=== PATIENT | female | born 1960 | race African-American/Black ===

== ENCOUNTER 2016-04-12 04:46 | Emergency (ER) | payer BC ==
[~2016-04-12] VITALS: Ht 175.3 cm; Wt 115.7 kg
[~2016-04-12 04:46] MED LIST: ACETAMINOPHEN-120 ML PO; AZITHROMYCIN 2250 MG PO; BENADRYL25 MG PO; CIPRO500 MG PO; CLONIDINE HCL0.2 M2 PO; DARVOCET-N 1001 EACH PO; DIAZEPAM 5 MG5 MG PO; DIOVAN320 MG PO; DOXYCYCLINE 10100 M1 PO; MEDROLDOSEPACK PO; MUCINEX600 MG PO; NAPROSYN500 MG PO; NORCO 5-325 TA1 EACH PO; PEPCID20 MG PO; PHENAZOPYRIDIN200 M2 PO; PHENERGAN 25 MG25 M1 PO; PREDNISONE 10 M10 M1 PO; PREDNISONE PO; PREDNISONE50 MG PO; PRILOSEC 20 MG20 MG PO; PRILOSEC40 MG PO; PROAIR HFA8.5 GM INH; PROLIA60 MG/1 ML IM; QVAR HFA 440 MCG/UN1 INH; SPIRIVA INH; SYMBICORT160 MCG/4. INH; TUMS PO; VALIUM5 MG PO; XOPENEX1.25 MG/3 IH; ZOFRAN ODT4 MG PO; [UNRECOGNIZED DRUG - OTHER] PO
[2016-04-12 05:36] LABS: ABSOLUTE NEUTROPHILS 4.4 thou/uL (1.4-8.2); BASOPHILS 0.6 % (0.0-2.0); EOSINOPHILS 0.1 % (0.0-3.0); HEMATOCRIT 39.7 % (37.0-47.0); HEMOGLOBIN 13.2 gm/dL (12.0-15.0); LYMPHOCYTES 14.4 % (24.0-44.0); MCH 30.5 pg (26.0-34.0); MCHC 33.4 % (28.0-37.0); MCV 91.6 fL (80.0-100.0); MONOCYTES 2.8 % (1.0-8.0); PLATELET COUNT 288 thou/uL (150-400); POLYS 82.1 % (36.0-66.0); RBC 4.33 mil/uL (4.20-5.00); RDW 13.2 % (10.5-14.5); WBC 5.3 thou/uL (4.0-11.0)
[2016-04-12 05:40] LABS: MANUAL DIFF NO
[2016-04-12 05:59] LABS: CALCIUM 9.7 mg/dL (8.5-10.1); CREATININE 0.9 mg/dL (0.6-1.3); POTASSIUM 4.5 mmol/L (3.5-5.1)
[2016-04-12 06:11] LABS: TOTAL BILIRUBIN 0.2 mg/dL (<0.1-1.0); TOTAL PROTEIN 8.4 g/dL (6.4-8.2)
[2016-04-12 06:41] LABS: URINE BILIRUBIN NEGATIVE (Negative); URINE BLOOD TRACE (Negative); URINE COLOR YELLOW; URINE GLUCOSE-RANDOM* NEGATIVE (Negative); URINE KETONES NEGATIVE (Negative); URINE LEUKOCYTES-REFLEX NEGATIVE (Negative); URINE PROTEIN (DIPSTICK) NEGATIVE (Negative); URINE SPECIFIC GRAVITY <= 1.005 (1.003-1.035); URINE UROBILINOGEN 0.2 E.U./dl (0.2-1.0)
[2016-04-12] MEDS ORDERED: ZANTAC 150MG T150 MG PO (07:00)
== END 2016-04-12 07:19 | disposition home or self-care (01) ==
LOC: ER 04:46
PROVIDERS: Emergency Medicine
DX: K21.9 Gastro-esophageal reflux disease without esophagitis (principal); R10.10 Upper abdominal pain, unspecified; J45.909 Unspecified asthma, uncomplicated; I10 Essential (primary) hypertension; E78.5 Hyperlipidemia, unspecified; Z90.710 Acquired absence of both cervix and uterus; Z90.49 Acquired absence of other specified parts of digestive tract; Z87.891 Personal history of nicotine dependence; Z88.5 Allergy status to narcotic agent

== ENCOUNTER 2017-07-09 08:08 | Emergency (ER) | payer BC ==
[~2017-07-09] VITALS: Ht 175.3 cm; Wt 113.4 kg
--- NOTE | ~2017-07-09 | EKG ---
[facility] [place] [address] ELECTROCARDIOGRAM REPORT Name: JANAK DYE Room [facility]: [id number] Admission: 07/09/17 Attend Phys: Discharge: Date of : 60 Report #: [id number] THIS REPORT FOR: //name// [facility] ED Test Date: 2017-07-09 Test Time: 09:11:48 Pat Name: JANAK DYE Department: Room: Gender: F Director Of Retail Marketing: 12 : 1960 Requested By: Pelon Soto Order Number: [id number] MD: Yung Perez Measurements Intervals [place] Rate: 87 P: 60 PA: 156 QRS: -18 QRSD: 98 T: 20 QT: 371 QTc: 447 Interpretive Statements Sinus rhythm Borderline left axis deviation Borderline low voltage, extremity leads Abnormal R-wave progression, late transition Compared to ECG 08/27/2016 13:33:32 Sinus rhythm has replaced atrial flutter Electronically Signed On 07-09-2017 17:15:43 CDT by Yung Perez [email or web address] <ELECTRONICALLY SIGNED> By: Yung Perez MD, [facility] 07/09/17 1715 0911 0 Yung Perez MD, [facility] /EPI
--- NOTE | ~2017-07-09 | EKG ---
[place] [address] [place] [address] ELECTROCARDIOGRAM REPORT Name: JANAK DYE Room #: REG [facility] [id number] Admission: 07/09/17 Attend Phys: Discharge: Date of : 60 Report #: [id number] THIS REPORT FOR: //name// [facility] ED Test Date: 2017-07-09 Test Time: 08:23:21 Pat Name: JANAK DYE Department: Room: Gender: F Security Systems Manager: : 1960 Requested By: Pelon Soto Order Number: [id number] MD: Yung Perez Measurements Intervals [place] Rate: 136 P: -85 [place]: 105 QRS: -67 QRSD: 91 T: 36 QT: 340 QTc: 512 Interpretive Statements Atrial flutter with 2-1 AV conduction Abnormal R-wave progression, late transition Possible inferior infarct, age indeterminate Prolonged QT interval Compared to ECG 08/27/2016 13:33:32 Atrial flutter has replaced sinus rhythm Electronically Signed On 07-09-2017 17:14:01 CDT by Yung Perez [email or web address] <ELECTRONICALLY SIGNED> By: Yung Perez MD, [facility] 07/09/17 1714 0823 0823 Yung Perez MD, [facility] /EPI
[~2017-07-09 08:08] MED LIST changes: +PREDNISONE 20 M20 MG PO; +ZANTAC 150MG T150 MG PO
[2017-07-09 08:41] LABS: HEMATOCRIT 37.5 % (37.0-47.0); HEMOGLOBIN 12.8 gm/dL (12.0-15.0); MCH 30.9 pg (26.0-34.0); MCHC 34.2 g/dL (28.0-37.0); MCV 90.1 fL (80.0-100.0); PLATELET COUNT 295 thou/uL (150-400); RBC 4.16 mil/uL (4.20-5.00); RDW 13.2 % (10.5-14.5); WBC 6.6 thou/uL (4.0-11.0)
[2017-07-09 08:50] LABS: ANION GAP 8 mmol/L (7-16); BUN 14 mg/dL (7-18); CALCIUM 9.6 mg/dL (8.5-10.1); CHLORIDE 106 mmol/L (98-107); CO2 24 mmol/L (21-32); CREATININE 1.1 mg/dL (0.6-1.0); GLUCOSE 123 mg/dL (74-106); POTASSIUM 4.3 mmol/L (3.5-5.1); SODIUM 138 mmol/L (136-145)
[2017-07-09 08:59] LABS: TROPONIN-I < 0.04 ng/mL (<0.06)
[2017-07-09 09:15] LABS: ABSOLUTE NEUTROPHILS 3.2 thou/uL (1.4-8.2); PLATELET ESTIMATE NORMAL
[2017-07-09] MEDS ORDERED: CARDIZEM CD120 MG PO (09:56)
[2017-07-09] MEDS ORDERED: ASPIRIN81 M2 PO (09:56)
== END 2017-07-09 10:00 | disposition home or self-care (01) ==
LOC: ER 08:08
PROVIDERS: Emergency Medicine
DX: I48.0 Paroxysmal atrial fibrillation (principal); J45.909 Unspecified asthma, uncomplicated; I10 Essential (primary) hypertension; M19.90 Unspecified osteoarthritis, unspecified site; K21.9 Gastro-esophageal reflux disease without esophagitis; E78.5 Hyperlipidemia, unspecified; G47.33 Obstructive sleep apnea (adult) (pediatric); Z88.6 Allergy status to analgesic agent; Z90.49 Acquired absence of other specified parts of digestive tract; Z90.710 Acquired absence of both cervix and uterus; Z98.890 Other specified postprocedural states; Z87.891 Personal history of nicotine dependence

== ENCOUNTER → 2017-07-12 | Outpatient (CLI) | payer BC ==
[~2017-07-12] MED LIST changes: +ASPIRIN81 M2 PO; +CARDIZEM CD120 MG PO
== END ==
LOC: ULTRA 06:04
DX: E04.1 Nontoxic single thyroid nodule (principal); R22.1 Localized swelling, mass and lump, neck

== ENCOUNTER → 2017-08-06 | Outpatient (CLI) | payer BC | END | disposition home or self-care (01) | LOC: ULTRA 06:36 | DX: E04.1 Nontoxic single thyroid nodule (principal); I48.0 Paroxysmal atrial fibrillation; J45.909 Unspecified asthma, uncomplicated; K21.9 Gastro-esophageal reflux disease without esophagitis; Z90.49 Acquired absence of other specified parts of digestive tract; Z90.710 Acquired absence of both cervix and uterus; Z87.440 Personal history of urinary (tract) infections; Z79.82 Long term (current) use of aspirin; Z79.899 Other long term (current) drug therapy ==

== ENCOUNTER 2018-10-01 21:52 | Emergency (ER) | payer BC ==
[~2018-10-01] VITALS: Ht 162.6 cm; Wt 115.7 kg
[2018-10-01 22:59] LABS: ABSOLUTE NEUTROPHILS 8.2 thou/uL (1.4-8.2); BASOPHILS 0.3 % (0.0-2.0); EOSINOPHILS 0.3 % (0.0-3.0); HEMATOCRIT 35.7 % (37.0-47.0); LYMPHOCYTES 12.2 % (24.0-44.0); MCH 30.4 pg (26.0-34.0); MCHC 33.5 g/dL (28.0-37.0); MCV 90.8 fL (80.0-100.0); PLATELET COUNT 259 thou/uL (150-400); POLYS 79.2 % (36.0-66.0); RBC 3.94 mil/uL (4.20-5.00); WBC 10.4 thou/uL (4.0-11.0)
[2018-10-01 23:11] LABS: CALCIUM 8.8 mg/dL (8.5-10.1); POTASSIUM 3.8 mmol/L (3.5-5.1)
[2018-10-01 23:17] LABS: ALBUMIN 3.5 g/dL (3.4-5.0); TOTAL BILIRUBIN 0.3 mg/dL (<0.1-1.0); TOTAL PROTEIN 7.4 g/dL (6.4-8.2)
[2018-10-01] MEDS ORDERED: ONDANSETRON HCL4 M2 PO (23:51)
[2018-10-02 00:18] LABS: URINE BILIRUBIN NEGATIVE (Negative); URINE BLOOD NEGATIVE (Negative); URINE CLARITY CLEAR; URINE COLOR YELLOW; URINE GLUCOSE-RANDOM* NEGATIVE (Negative); URINE KETONES NEGATIVE (Negative); URINE LEUKOCYTES-REFLEX NEGATIVE (Negative); URINE NITRITE-REFLEX NEGATIVE (Negative); URINE PROTEIN (DIPSTICK) NEGATIVE (Negative); URINE SPECIFIC GRAVITY 1.015 (1.005-1.035)
[2018-10-02 00:45] VITALS: BP 178/97
--- NOTE | 2018-10-02 07:37 | EKG ---
[place] [address] [facility] [place] [address] ELECTROCARDIOGRAM REPORT Name: JANAK DYE Room #: DEP [facility] [id number] ������������������ Admission: 10/01/18 ������������������ Attend Phys: Discharge: 10/02/18 ������������������ Date of : 60 Report #: [id number] ����������������������������������������������������������������� [id number] THIS REPORT FOR: //name// [facility] ED Test Date: 2018-10-01 Test Time: 22:28:21 Pat Name: JANAK DYE Department: Room: Gender: F Manager Of Procurement: CARLO : 1960 Requested By: Jorge Jones Order Number: [id number] MD: Yung Perez Measurements Intervals [place] Rate: 92 P: 63 [place]: 150 QRS: -46 QRSD: 95 T: 27 QT: 363 QTc: 450 Interpretive Statements Sinus rhythm Abnormal R-wave progression, late transition Inferior infarct, old Compared to ECG 07/09/2017 09:11:48 no significant change was found Electronically Signed On 10-02-2018 7:37:12 CDT by Yung Perez [email or web address] ��������������������������������������������� <ELECTRONICALLY SIGNED> ���������������������������������������� By: Yung Perez MD, [facility] ��������������������������������������������� 10/02/18 0737 27 27 Yung Perez MD, [facility] /EPI
== END 2018-10-02 00:46 | disposition home or self-care (01) ==
LOC: ER 21:52
PROVIDERS: Emergency Medicine
DX: B34.9 Viral infection, unspecified (principal); I10 Essential (primary) hypertension; J45.909 Unspecified asthma, uncomplicated; E78.5 Hyperlipidemia, unspecified; M19.90 Unspecified osteoarthritis, unspecified site; K21.9 Gastro-esophageal reflux disease without esophagitis; Z87.891 Personal history of nicotine dependence; Z90.710 Acquired absence of both cervix and uterus; Z90.49 Acquired absence of other specified parts of digestive tract; Z98.890 Other specified postprocedural states; Z88.8 Allergy status to other drugs, medicaments and biological substances; Z88.6 Allergy status to analgesic agent

== ENCOUNTER 2020-03-01 09:25 | Emergency (ER) | payer BC ==
[~2020-03-01] VITALS: Ht 175.3 cm; Wt 113.4 kg
--- NOTE | ~2020-03-01 | EMS ---
[facility] [address] [place] [address] EMS Patient Care Report Name: JANAK DYE Room #: DEP OJ Beckwith#: [id number] Admission: 03/01/20 Attend Phys: Discharge: 03/01/20 Date of : 60 Report #: [id number] THIS REPORT FOR: //name// Report Transmitted: 03/01/2020 20:30 EMS Care Summary [place], [place]/[facility] Incident [id number] @ 03/01/2020 08:40 Incident Location [address] [place] [address] Patient JANAK DYE Female, 59 Years 1960 Patient Address [address] [place] [address] Patient History Asthma,Hypertension (HTN),Atrial Fibrillation, Patient Allergies Tramadol, Patient Medications Amlodipine, Losartan, Chief Complaint It's hard to breathe Disposition Transported No Lights/[place] Dispatch Reason Breathing Problem Transported To [facility] Narrative Called for SOB. Upon arrival, pt was walking outside towards the ambulance where she climbed in and sat down w/o incident. Pt said she had asthma and [address] [address] EMS Patient Care Report Name: JANAK DYE Room #: DEP M.Alfred.#: [id number] Admission: 03/01/20 Attend Phys: Discharge: 03/01/20 Date of : 60 Report #: [id number] couldn't break it. Vitals obtained. Wheezing present. Duo-Neb started w/O2. 18g IV. Solumedrol. Vitals repeated. En route: pt said she was doing better, RR to ER. Arrived: pt taken to ER #4, pt care & report to ER staff. Initial Vitals @09:05P: 101,SpO2: 100, @09:01P: 99,CO: 2,SpO2: 100, @09:02P: 100,R: 18,BP: 160/91,Pain: 0/10,GCS: 15,Glucose: 127,CO: 3,SpO2: 99,Revised Trauma: 12,NV Suspected: false @09:05P: 97, @08:53P: 115,R: 28,BP: 155/86,Pain: 0/10,GCS: 15,CO: 3,SpO2: 96,Revised Trauma: 12, Assessments @08:47MENTAL:Person Oriented,Time Oriented,Place Oriented,Event Oriented,SKIN:HEENT:LUNG SOUNDS:General: Vomiting,General: Diarrhea,General: Nausea,ABDOMEN:General: Vomiting,General: Diarrhea,General: Nausea,PELVIS//GI:EXTREMITIES:Left Arm: No Abnormalities,Right Arm: No Abnormalities,Left Leg: No Abnormalities,Right Leg: No Abnormalities,PULSE:Radial: 2+ Normal,NEURO: Impression Asthma Procedures @09:01Saline Lock 15cc (18 ga) Site: Forearm-LeftResponse: UnchangedSucceeded@08:51Oxygen FlowRate: 8 Device: Nebulizer Response: ImprovedSucceeded@08:47ALS AssessmentResponse: UnchangedSucceeded@09:05Solu-Medrol - 125 Milligrams (mg) - Intravenous (IV)Response: Improved@08:51Albuterol - 2.5 Milligrams (mg) - NebulizedResponse: Improved@08:51Atrovent - 0.5 Milligrams (mg) - NebulizedResponse: Improved@08:51Albuterol - 2.5 Milligrams (mg) - NebulizedResponse: Improved@08:49StretcherResponse: Unchanged Timeline 08:38,Call Received 08:38,Dispatch Notified 08:40,Dispatched 08:42,En Route 08:46,On Scene 08:47,At Patient 08:47,ALS Assessment,Response: UnchangedSucceeded, 08:49,Stretcher,Response: Unchanged 08:51,Albuterol - 2.5 Milligrams (mg) - Nebulized,Response: Improved 08:51,Albuterol - 2.5 Milligrams (mg) - Nebulized,Response: Improved 08:51,Atrovent - 0.5 Milligrams (mg) - Nebulized,Response: Improved [facility] [address] [place] [address] EMS Patient Care Report Name: JANAK DYE Room #: [facility] Amena#: [id number] Admission: 03/01/20 Attend Phys: Discharge: 03/01/20 Date of : 60 Report #: [id number] 08:51,Oxygen FlowRate: 8 Device: Nebulizer Response: ImprovedSucceeded, 08:53,BP: 155/86 M,PULSE: 115,RR: 28 R,SPO2: 96 Ox,ETCO2: ,BG: ,PAIN: 0,GCS: 15, 09:01,Saline Lock 15cc 18 ga Site: Forearm-Left,Response: UnchangedSucceeded, 09:01,BP: / M,PULSE: 99,RR: R,SPO2: 100 Ox,ETCO2: ,BG: ,PAIN: ,GCS: , 09:02,BP: 160/91 M,PULSE: 100,RR: 18 R,SPO2: 99 Ox,ETCO2: ,B,PAIN: 0,GCS: 15, 09:05,Solu-Medrol - 125 Milligrams (mg) - Intravenous (IV),Response: Improved 09:05,BP: / M,PULSE: 101,RR: R,SPO2: 100 Ox,ETCO2: ,BG: ,PAIN: ,GCS: , 09:05,BP: / M,PULSE: 97,RR: R,SPO2: Ox,ETCO2: ,BG: ,PAIN: ,GCS: , 09:05,Depart Scene 09:15,At Destination 09:35,Call Closed Disclaimer v1.1 Copyright 2020 [employer] This EMS Care Summary contains data elements from the applicable legal record (which may be displayed differently). It is designed to provide pertinent information for the following purposes: continuity of care, clinical quality, and state data reporting. The complete legal record is available to ED staff and administrators of the receiving hospital in [employer]'s Patient Tracker. All data is provided "as is."
[~2020-03-01 09:25] MED LIST changes: +ONDANSETRON HCL4 M2 PO
[2020-03-01 09:40] LABS: ABSOLUTE NEUTROPHILS 15.3 thou/uL (1.4-8.2); BASOPHILS 0.2 % (0.0-2.0); HEMATOCRIT 38.4 % (37.0-47.0); HEMOGLOBIN 12.5 gm/dL (12.0-15.0); LYMPHOCYTES 5.3 % (24.0-44.0); MCH 29.9 pg (26.0-34.0); MCHC 32.5 g/dL (28.0-37.0); MCV 91.8 fL (80.0-100.0); MONOCYTES 4.8 % (1.0-8.0); PLATELET COUNT 279 thou/uL (150-400); POLYS 89.7 % (36.0-66.0); RBC 4.18 mil/uL (4.20-5.00); RDW 13.3 % (10.5-14.5)
[2020-03-01 09:52] LABS: ANION GAP 11 mmol/L (7-16); BUN 9 mg/dL (7-18); CALCIUM 9.3 mg/dL (8.5-10.1); CHLORIDE 102 mmol/L (98-107); CO2 27 mmol/L (21-32); CREATININE 1.1 mg/dL (0.6-1.0); GLUCOSE 143 mg/dL (74-106); POTASSIUM 3.4 mmol/L (3.5-5.1); SODIUM 140 mmol/L (136-145)
[2020-03-01 10:01] LABS: ALBUMIN 3.8 g/dL (3.4-5.0); DIRECT BILIRUBIN 0.2 mg/dL (<0.1-0.2); SGOT 25 U/L (15-37); SGPT 38 U/L (30-65); TOTAL BILIRUBIN 0.7 mg/dL (0.2-1.0); TOTAL PROTEIN 7.3 g/dL (6.4-8.2); TROPONIN-I <0.06 ng/mL (<0.06)
--- NOTE | 2020-03-01 10:57 | EKG ---
[facility] [place] [address] ELECTROCARDIOGRAM REPORT Name: JANAK DYE Room #: REG [facility].#: [id number] Admission: 03/01/20 Attend Phys: Discharge: Date of : 60 Report #: [id number] THIS REPORT FOR: cc: Linda Bourgeois MD, Karla L. MD Couchonnal,Nitish Gordon MD ~ THIS REPORT FOR: //name// [facility] ED Test Date: 2020-03-01 Test Time: 09:30:33 Pat Name: JANAK DYE Department: Room: Gender: F Intern Retail: : 1960 Requested By: Lima Arteaga Order Number: [id number] MD: Nitish Sandoval Measurements Intervals [place] Rate: 98 P: 71 [place]: 155 QRS: -78 QRSD: 98 T: 61 QT: 348 QTc: 445 Interpretive Statements Sinus rhythm Consider left atrial enlargement Abnormal R-wave progression, late transition Inferior infarct, old Compared to ECG 10/01/2018 22:28:21 No significant changes Electronically Signed On 03-01-2020 10:57:27 FRUIT AND VEGETABLE FACTORY WORKER by Nitish Sandoval [email or web address] <ELECTRONICALLY SIGNED> By: Nitish Sandoval MD 03/01/20 1057 Nitish Sandoval MD /EPI
[2020-03-01] MEDS ORDERED: NORCO 5-325 TA1 EAC2 PO (14:32)
[2020-03-01] MEDS ORDERED: VIBRAMYCIN 100100 MG PO (14:32)
[2020-03-01 14:44] VITALS: BP 184/101
== END 2020-03-01 15:00 | disposition home or self-care (01) ==
LOC: ER 09:25
PROVIDERS: Emergency Medicine
DX: J18.9 Pneumonia, unspecified organism (principal); R53.1 Weakness; I10 Essential (primary) hypertension; J45.909 Unspecified asthma, uncomplicated; K21.9 Gastro-esophageal reflux disease without esophagitis; E78.5 Hyperlipidemia, unspecified; Z90.710 Acquired absence of both cervix and uterus; Z90.49 Acquired absence of other specified parts of digestive tract; Z79.899 Other long term (current) drug therapy; Z87.891 Personal history of nicotine dependence; Z88.8 Allergy status to other drugs, medicaments and biological substances; Z20.828 Contact with and (suspected) exposure to other viral communicable diseases

== ENCOUNTER 2020-04-15 13:46 | Inpatient (IN) | payer BC ==
[~2020-04-15] VITALS: Ht 170.2 cm; Wt 122.5 kg
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
[~2020-04-15 13:46] MED LIST changes: +NORCO 5-325 TA1 EAC2 PO; +VIBRAMYCIN 100100 MG PO
[2020-04-15 13:47] VITALS: BP 151/82
[2020-04-15 15:58] LABS: HEMOGLOBIN 12.1 gm/dL (12.0-15.0); MCH 29.8 pg (26.0-34.0); MCHC 32.7 g/dL (28.0-37.0); MCV 91.2 fL (80.0-100.0); PLATELET COUNT 323 thou/uL (150-400); RBC 4.06 mil/uL (4.20-5.00); RDW 13.4 % (10.5-14.5); WBC 28.6 thou/uL (4.0-11.0)
[2020-04-15 16:44] LABS: ABSOLUTE NEUTROPHILS 25.2 thou/uL (1.4-8.2)
[2020-04-15 16:54] LABS: ANION GAP 16 mmol/L (7-16); BUN 13 mg/dL (7-18); CALCIUM 9.9 mg/dL (8.5-10.1); CHLORIDE 101 mmol/L (98-107); CO2 20 mmol/L (21-32); CREATININE 1.1 mg/dL (0.6-1.0); GLUCOSE 100 mg/dL (74-106); POTASSIUM 3.9 mmol/L (3.5-5.1); SODIUM 137 mmol/L (136-145)
[2020-04-15 17:06] LABS: ALBUMIN 3.9 g/dL (3.4-5.0); LIPASE 50 U/L (73-393); SGOT 27 U/L (15-37); SGPT 24 U/L (14-59); TOTAL BILIRUBIN 0.8 mg/dL (0.2-1.0); TOTAL PROTEIN 7.9 g/dL (6.4-8.2); TROPONIN-I <0.06 ng/mL (<0.06)
--- NOTE | 2020-04-15 17:50 | NUR ---
RETURNED FROM CT
[2020-04-15 18:56] LABS: URINE BILIRUBIN NEGATIVE (Negative); URINE BLOOD TRACE (Negative); URINE CLARITY CLEAR; URINE COLOR YELLOW; URINE GLUCOSE-RANDOM* NEGATIVE (Negative); URINE KETONES NEGATIVE (Negative); URINE LEUKOCYTES-REFLEX NEGATIVE (Negative); URINE NITRITE-REFLEX NEGATIVE (Negative); URINE PROTEIN (DIPSTICK) NEGATIVE (Negative); URINE SPECIFIC GRAVITY <= 1.005 (1.005-1.035); URINE UROBILINOGEN 0.2 E.U./dl (0.2-1.0)
[2020-04-15 22:12] VITALS: BP 141/84
[2020-04-15 23:30] VITALS: BP 125/69
[2020-04-16] MEDS ORDERED: AMLODIPINE BESY10 MG PO (00:11)
[2020-04-16] MEDS ORDERED: SPIRIVA18 MCG INH (00:13)
[2020-04-16 04:53] VITALS: BP 117/46
[2020-04-16 05:53] LABS: ABSOLUTE NEUTROPHILS 11.1 thou/uL (1.4-8.2); BASOPHILS 0.3 % (0.0-2.0); EOSINOPHILS 0.6 % (0.0-3.0); HEMATOCRIT 30.7 % (37.0-47.0); HEMOGLOBIN 10.4 gm/dL (12.0-15.0); LYMPHOCYTES 16.3 % (24.0-44.0); MCH 31.2 pg (26.0-34.0); MCV 91.7 fL (80.0-100.0); MONOCYTES 6.9 % (1.0-8.0); POLYS 75.9 % (36.0-66.0); RBC 3.34 mil/uL (4.20-5.00); RDW 13.8 % (10.5-14.5); WBC 14.6 thou/uL (4.0-11.0)
--- NOTE | 2020-04-16 06:06 | NUR ---
pt admitted from home with complains of abdominal pain, nausea/vomiting and diarrhea, pt is alert and orientedx4, vss, pain medicine given for abdominal pain with partial relief, to d/c covid isolation d/t covid - results, remained npo, no acute distress noted, will pass on report
[2020-04-16 06:08] LABS: PLATELET COUNT 240 thou/uL (150-400)
--- NOTE | 2020-04-16 06:08 | NUR ---
Okay to remove patient from Covid isolation per Brittany Ignacio RN.
[2020-04-16 06:15] LABS: ALBUMIN 3.1 g/dL (3.4-5.0); CREATININE 1.1 mg/dL (0.6-1.0); MAGNESIUM 1.9 mg/dL (1.8-2.4); POTASSIUM 3.4 mmol/L (3.5-5.1); TOTAL BILIRUBIN 0.4 mg/dL (0.2-1.0); TOTAL PROTEIN 6.5 g/dL (6.4-8.2)
[2020-04-16 07:52] VITALS: BP 159/93
--- NOTE | 2020-04-16 11:21 | NUR ---
PT SEEN THIS MORNING BY , PER PT, SHE WAS NOT RECEIVING ENOUGH BREAHING TREATMENTS, RT, RN, PT TALKED ABOUT BREATHING TX NEEDS AND THIS WAS COMMUNICATED TO THE MD WHO ORDERED ADDITIONAL TREATMENTS SCHEDULED FOR THE PT. PT IS TO BE TRANFERRED TODAY, PRIOR IV THAT WAS BOTHERING THE PT WAS TAKEN OUT AND NEW IV WAS PLACED. PT STILL ON NPO STATUS, LOWERING HGB WAS NOTIFIED TO THE MD. PT'S LAST MEAL WAS 04/14/20 [employer] [facility]. SINCE RN HAS HAD THE PT, PT HAD NOT USED TO GO FOR A BM. HAT IS WAITING, WILL COLLECT CDIFF SAMPLE WHEN CAN
--- NOTE | 2020-04-16 14:56 | EKG ---
[place] [address] [facility] [place] [place] [address] ELECTROCARDIOGRAM REPORT Name: JANAK DYE Room #: 363-P ADM IN M.R.#: [id number] Admission: 04/15/20 Attend Phys: Les Llanes MD Discharge: Date of : 60 Report #: [id number] [facility] ED Test Date: 2020-04-15 Test Time: 16:38:38 Pat Name: JANAK DYE Department: Room: 363 Gender: F Postal Carrier: ECCIL : 1960 Requested By: Gina Graff Order Number: [id number] MD: Javan Jones Measurements Intervals [place] Rate: 76 P: 64 FL: 152 QRS: -20 QRSD: 109 T: -1 QT: 339 QTc: 382 Interpretive Statements Sinus rhythm Abnormal R-wave progression, late transition Probable left ventricular hypertrophy Inferior infarct, old Compared to ECG 03/01/2020 09:30:33 No significant changes Electronically Signed On 04-16-2020 14:56:07 DIRECTOR OF COMMUNICATIONS by Javan Jones [email or web address] <ELECTRONICALLY SIGNED> By: Javan Jones MD, [facility] 04/16/20 1456 1638 37 Javan Jones MD, FAC /EPI
[2020-04-16 15:53] VITALS: BP 153/80
[2020-04-16 20:25] VITALS: BP 130/60
--- NOTE | 2020-04-17 02:18 | NUR ---
98% ON ROOM AIR. HOWEVER, SOME WHEEZES IN LOWER LOBES. SHE IS NOT COMFORTABLE WITH HER BREATHING TOTALLY. SHE USUALLY [facility] TO [facility] AND RECEIVES SUBQ INJECTIONS CALLED XOLAIR. WE DO NOT HAVE THIS DRUG AVAILABLE IN THE HOSPITAL. SPOKE WITH PROVIDER AND RECIEVED AN ORDER TO START SOLUMEDROL 40 MG IV DAILY AND SINGULAIR 10 MG DAILY OKAY TO START NOW. CONTINUES ON IV FLUIDS. UP TO THE RESTROOM WITH ONLY STAND BY ASSIST. SHE IS CALM, AND COOPERATIVE.
[2020-04-17 04:07] VITALS: BP 142/82
[2020-04-17 05:49] LABS: HEMATOCRIT 32.9 % (37.0-47.0); HEMOGLOBIN 10.9 gm/dL (12.0-15.0); MCH 30.5 pg (26.0-34.0); MCHC 33.2 g/dL (28.0-37.0); MCV 91.9 fL (80.0-100.0); RBC 3.58 mil/uL (4.20-5.00); RDW 13.6 % (10.5-14.5); WBC 6.5 thou/uL (4.0-11.0)
[2020-04-17 05:59] LABS: ALBUMIN 3.2 g/dL (3.4-5.0); CALCIUM 9.1 mg/dL (8.5-10.1); POTASSIUM 3.7 mmol/L (3.5-5.1); TOTAL BILIRUBIN 0.3 mg/dL (0.2-1.0); TOTAL PROTEIN 6.8 g/dL (6.4-8.2)
[2020-04-17 07:35] VITALS: BP 159/86
[2020-04-17] MEDS ORDERED: CEFDINIR300 MG PO (14:01)
[2020-04-17 14:12] VITALS: BP 163/104
--- NOTE | 2020-04-17 14:49 | NUR ---
REVIEWED DC PAPERWORK WITH PT. NO QUESTIONS AT THIS TIME, PT VERBALIZED UNDERSTANDING. IV REMOVED, CLONIDINE PATCH REMOVED. PT TOLERATED WELL. IV SITE WNL, NO EDEMA OR REDNESS. PT STATES SHE IS TRYING TO GET AHOLD OF HER RIDE, AND DOES NOT NEED HELP GETTING DRESSED. PT STATED SHE DID HAVE MILD STOMACH PAIN/SPASM EARLIER, DENIED NEED FOR PAIN MEDICATION. STATED SHE 'WALKED AROUND AND IT FELT BETTER'.
== END 2020-04-17 16:05 | disposition home or self-care (01) | DRG 371 ==
LOC: ER 13:46 → 3W 19:02 → EROBS 19:02 → 3W 23:25
PROVIDERS: Emergency Medicine; Nurse Practitioner; ADMIT Internal Medicine; ATTEND Internal Medicine
DX: A04.9 Bacterial intestinal infection, unspecified (principal); J18.9 Pneumonia, unspecified organism; Z68.41 Body mass index [BMI] 40.0-44.9, adult; A08.4 Viral intestinal infection, unspecified; D72.829 Elevated white blood cell count, unspecified; D72.823 Leukemoid reaction; I10 Essential (primary) hypertension; K21.9 Gastro-esophageal reflux disease without esophagitis; E78.5 Hyperlipidemia, unspecified; G47.33 Obstructive sleep apnea (adult) (pediatric); E66.01 Morbid (severe) obesity due to excess calories; M19.90 Unspecified osteoarthritis, unspecified site; J45.909 Unspecified asthma, uncomplicated; Z20.822 Contact with and (suspected) exposure to COVID-19; Z90.49 Acquired absence of other specified parts of digestive tract; Z90.710 Acquired absence of both cervix and uterus; Z98.891 History of uterine scar from previous surgery; Z99.81 Dependence on supplemental oxygen; Z85.3 Personal history of malignant neoplasm of breast; Z79.899 Other long term (current) drug therapy; Z88.8 Allergy status to other drugs, medicaments and biological substances; Z87.891 Personal history of nicotine dependence
CPT/HCPCS: 10080

== ENCOUNTER → 2020-05-04 | Outpatient (CLI) | payer BC ==
[~2020-05-04] MED LIST changes: +AMLODIPINE BESY10 MG PO; +CEFDINIR300 MG PO; +SPIRIVA18 MCG INH
== END ==
LOC: RAD 14:04
PROVIDERS: ATTEND Internal Medicine
DX: J18.9 Pneumonia, unspecified organism (principal)

== ENCOUNTER 2020-06-11 19:02 | Emergency (ER) | payer BC ==
[~2020-06-11] VITALS: Ht 175.3 cm; Wt 117.9 kg
[2020-06-11 19:20] LABS: URINE BILIRUBIN NEGATIVE (Negative); URINE BLOOD NEGATIVE (Negative); URINE CLARITY CLEAR; URINE COLOR YELLOW; URINE GLUCOSE-RANDOM* NEGATIVE (Negative); URINE KETONES TRACE (Negative); URINE LEUKOCYTES-REFLEX NEGATIVE (Negative); URINE NITRITE-REFLEX NEGATIVE (Negative); URINE PROTEIN (DIPSTICK) 1+ (Negative); URINE SPECIFIC GRAVITY >= 1.030 (1.005-1.035); URINE UROBILINOGEN 0.2 E.U./dl (0.2-1.0)
[2020-06-11 19:40] LABS: BACTERIA-REFLEX >30 Many /HPF (None Seen); MUCUS 0-3 Light strn/LPF (None Seen); SQUAMOUS >10 Many /LPF (0-3); WBC CLUMPS Few (None Seen)
[2020-06-11 19:41] LABS: URINE RBC 0-2 Rare /HPF (0-2)
[2020-06-11 19:42] LABS: CASTS None Seen /LPF (None Seen); CRYSTALS None Seen /LPF (None Seen); URINE WBC-REFLEX 0-5 Rare /HPF (0-5)
[2020-06-11 20:06] LABS: ABSOLUTE NEUTROPHILS 2.8 thou/uL (1.4-8.2); BASOPHILS 0.6 % (0.0-2.0); EOSINOPHILS 1.2 % (0.0-3.0); HEMATOCRIT 36.8 % (37.0-47.0); HEMOGLOBIN 12.6 gm/dL (12.0-15.0); LYMPHOCYTES 37.2 % (24.0-44.0); MCH 30.8 pg (26.0-34.0); MCHC 34.3 g/dL (28.0-37.0); MCV 89.8 fL (80.0-100.0); MONOCYTES 11.4 % (1.0-8.0); PLATELET COUNT 351 thou/uL (150-400); POLYS 49.6 % (36.0-66.0); RDW 13.2 % (10.5-14.5); WBC 5.7 thou/uL (4.0-11.0)
[2020-06-11 20:28] LABS: CALCIUM 9.7 mg/dL (8.5-10.1); CREATININE 1.2 mg/dL (0.6-1.0); POTASSIUM 3.8 mmol/L (3.5-5.1)
[2020-06-11 20:32] LABS: TOTAL BILIRUBIN 0.3 mg/dL (0.2-1.0); TOTAL PROTEIN 7.9 g/dL (6.4-8.2)
[2020-06-11] MEDS ORDERED: CARAFATE 1 GM TA1 G1 PO (21:49)
[2020-06-11] MEDS ORDERED: ONDANSETRON HCL4 M2 PO (21:49)
[2020-06-11] MEDS ORDERED: OMEPRAZOLE40 MG PO (21:49)
[2020-06-11] MEDS ORDERED: NORCO5 PO (22:16)
[2020-06-12 00:01] VITALS: BP 133/76
== END 2020-06-11 23:30 | disposition home or self-care (01) ==
LOC: ER 19:02
PROVIDERS: Physician Assistant
DX: K29.70 Gastritis, unspecified, without bleeding (principal); R10.84 Generalized abdominal pain; J45.909 Unspecified asthma, uncomplicated; I10 Essential (primary) hypertension; K21.9 Gastro-esophageal reflux disease without esophagitis; E78.5 Hyperlipidemia, unspecified; Z87.891 Personal history of nicotine dependence; Z88.8 Allergy status to other drugs, medicaments and biological substances; Z88.6 Allergy status to analgesic agent; Z90.710 Acquired absence of both cervix and uterus; Z90.49 Acquired absence of other specified parts of digestive tract

== ENCOUNTER 2021-01-10 22:02 | Emergency (ER) | payer BC ==
[~2021-01-10] VITALS: Ht 175.3 cm; Wt 113.4 kg
--- NOTE | ~2021-01-10 | EMS ---
[facility] [address] [place] [address] EMS Patient Care Report Name: JANAK DYE Room #: DEP M.R.#: [id number] Admission: 01/10/21 Attend Phys: Discharge: 01/10/21 Date of : 60 Report #: [id number] THIS REPORT FOR: //name// Report Transmitted: 01/11/2021 08:48 EMS Care Summary [place], [place] Incident [id number] @ 01/10/2021 21:37 Incident Location [address] [place] [address] Patient JANAK DYE Female, 60 Years 1960 Patient Address [address] Patient History Asthma,Hypertension (HTN), Patient Allergies Tramadol,Gabapentin, Chief Complaint abd pain Disposition Transported No Lights/[place] Dispatch Reason Abdominal Pain/Problems Transported To [facility] Narrative pt found standing in the parking lot. she was going to drive herself to the ER for abd pain but decided she was in too much pain and called 911. pt has had abd pain and problems w/ constipation for the past 2 months. she has been to the Dr and is under a Dr care but cont to have issues. she states pain has been worse today. she req eval at [facility]. pt seats self on bench seat, [facility] [address] [place] [address] EMS Patient Care Report Name: JANAK DYE Room #: DEP [facility]#: [id number] Admission: 01/10/21 Attend Phys: Discharge: 01/10/21 Date of : 60 Report #: [id number] transport w/o change. Initial Vitals @21:47P: 109,R: 18,BP: 185/111,Pain: 10/10,GCS: 15,SpO2: 98,Revised Trauma: 12, Assessments @21:45MENTAL:No Abnormalities,SKIN:No Abnormalities,HEENT:Head/Face: No Abnormalities,LUNG SOUNDS:General: Nausea,General: Other,ABDOMEN:General: Nausea,General: Other,PELVIS//GI:EXTREMITIES:PULSE:Radial: 2+ Normal,NEURO:No Abnormalities, Impression Abdominal Pain Procedures @21:45 ALS Assessment Response: Unchanged Timeline 21:35,Call Received 21:35,Dispatch Notified 21:37,Dispatched 21:38,En Route 21:44,On Scene 21:45,At Patient 21:45,ALS Assessment,Response: Unchanged 21:47,BP: 185/111 M,PULSE: 109,RR: 18 R,SPO2: 98 Ox,ETCO2: ,BG: ,PAIN: 10,GCS: 15, 21:50,Depart Scene 21:58,At Destination 22:08,Call Closed Disclaimer v1.1 Copyright 2020 [employer] This EMS Care Summary contains data elements from the applicable legal record (which may be displayed differently). It is designed to provide pertinent information for the following purposes: continuity of care, clinical quality, and state data reporting. The complete legal record is available to ED staff and administrators of the receiving hospital in [facility]'s Patient Tracker. All data is provided "as is."
[~2021-01-10 22:02] MED LIST changes: +CARAFATE 1 GM TA1 G1 PO; +NORCO5 PO; +OMEPRAZOLE40 MG PO
[2021-01-10 22:49] LABS: ABSOLUTE NEUTROPHILS 4.9 thou/uL (1.4-8.2); BASOPHILS 0.7 % (0.0-2.0); EOSINOPHILS 0.7 % (0.0-3.0); HEMATOCRIT 40.1 % (37.0-47.0); HEMOGLOBIN 13.2 gm/dL (12.0-15.0); LYMPHOCYTES 25.3 % (24.0-44.0); MCH 30.4 pg (26.0-34.0); MCHC 32.9 g/dL (28.0-37.0); MCV 92.2 fL (80.0-100.0); MONOCYTES 9.5 % (1.0-8.0); PLATELET COUNT 378 thou/uL (150-400); POLYS 63.8 % (36.0-66.0); RBC 4.35 mil/uL (4.20-5.00); RDW 13.7 % (10.5-14.5); WBC 7.7 thou/uL (4.0-11.0)
[2021-01-10 22:51] LABS: CALCIUM 9.3 mg/dL (8.5-10.1); CREATININE 1.1 mg/dL (0.6-1.0); POTASSIUM 4.2 mmol/L (3.5-5.1)
[2021-01-10] MEDS ORDERED: NORCO5 PO (23:03)
[2021-01-10] MEDS ORDERED: MAGNESIUM CITR296 ML PO (23:23)
[2021-01-10] MEDS ORDERED: NAPROSYN500 MG PO (23:23)
[2021-01-10 23:49] VITALS: BP 170/86
== END 2021-01-10 23:58 | disposition home or self-care (01) ==
LOC: ER 22:02
PROVIDERS: Emergency Medicine
DX: R10.84 Generalized abdominal pain (principal); J45.909 Unspecified asthma, uncomplicated; I10 Essential (primary) hypertension; M19.90 Unspecified osteoarthritis, unspecified site; K21.9 Gastro-esophageal reflux disease without esophagitis; E78.5 Hyperlipidemia, unspecified; Z90.710 Acquired absence of both cervix and uterus; Z90.49 Acquired absence of other specified parts of digestive tract; Z85.3 Personal history of malignant neoplasm of breast; Z79.51 Long term (current) use of inhaled steroids; Z79.891 Long term (current) use of opiate analgesic; Z79.1 Long term (current) use of non-steroidal anti-inflammatories (NSAID); Z79.899 Other long term (current) drug therapy; Z88.6 Allergy status to analgesic agent; Z88.5 Allergy status to narcotic agent; Z88.8 Allergy status to other drugs, medicaments and biological substances; Z91.09 Other allergy status, other than to drugs and biological substances; Z87.891 Personal history of nicotine dependence